=== PATIENT | female | born 1965 ===

== ENCOUNTER 2017-08-12 12:03 | Emergency (ER) | payer OTHER ==
[~2017-08-12] VITALS: Ht 152.4 cm; Wt 86.2 kg
[~2017-08-12 12:03] MED LIST: ACETA-GESIC 321 EACH; BACLOFEN10 MG; CATAFLAM50 MG; GABAPENTIN600 MG
== END 2017-08-12 18:13 | disposition home or self-care (01) ==
LOC: ER 12:03
DX: I82.4Z1 Acute embolism and thrombosis of unspecified deep veins of right distal lower extremity (principal); M79.661 Pain in right lower leg

== ENCOUNTER 2018-08-09 10:37 | Emergency (ER) | payer OTHER ==
[~2018-08-09] VITALS: Ht 152.4 cm; Wt 85.7 kg
[2018-08-09] MEDS ORDERED: OSTERA TABLET1 EACH (10:55)
[2018-08-09] MEDS ORDERED: RELAFEN (10:55)
[2018-08-09] MEDS ORDERED: ULTRAM50 MG PO (12:11)
== END 2018-08-09 12:20 | disposition home or self-care (01) ==
LOC: ER 10:37
DX: G89.29 Other chronic pain (principal); M79.661 Pain in right lower leg

== ENCOUNTER 2022-04-20 14:50 | Emergency (ER) | payer OTHER ==
[~2022-04-20] VITALS: Ht 152.4 cm; Wt 93.9 kg
[~2022-04-20 14:50] MED LIST changes: +OSTERA TABLET1 EACH; +RELAFEN; +ULTRAM50 MG PO
== END 2022-04-20 15:52 | disposition home or self-care (01) ==
LOC: ER 14:50
DX: M25.512 Pain in left shoulder (principal); Z88.6 Allergy status to analgesic agent